=== PATIENT | female | born 2005 | race Caucasian/White ===

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

== ENCOUNTER → 2023-04-01 | Outpatient (CLI) | payer BC ==
[~2023-04-01] MED LIST changes: +Bactrim Ds Tab1 EACH PO
[2023-04-01 16:26] LABS: Source, Urine Clean Catch
[2023-04-01 17:54] LABS: Appearance, Urine Cloudy (Clear); Bilirubin, Urine Neg (Neg); Blood, Urine 1+ (Neg); Glucose Qualitative, Urine Neg (Neg); Ketones, Urine Neg (Neg); Leukocyte Esterase, Urine 2+ (Neg); Nitrite, Urine Neg (Neg); Protein, Urine Neg (Neg); Specific Gravity, Urine 1.015 (1.003-1.022); Urobilinogen, Urine NORM (Normal)
[2023-04-01 18:02] LABS: BASOPHILS ABSOLUTE AUTO 0.03 K/mm3 (0.00-0.23); BASOPHILS PERCENT AUTO 1 % (0-2); EOSINOPHILS ABSOLUTE AUTO 0.07 K/mm3 (0.00-0.68); EOSINOPHILS PERCENT AUTO 1 % (0-6); Hematocrit 38.7 % (33.0-51.0); IMMATURE GRAN ABSOLUTE AUTO 0.01 K/mm3 (0.00-0.10); IMMATURE GRAN PERCENT AUTO 0 % (0-1); LYMPHOCYTES ABSOLUTE AUTO 1.06 K/mm3 (0.84-5.20); LYMPHOCYTES PERCENT AUTO 21 % (21-46); MONOCYTES ABSOLUTE AUTO 0.49 K/mm3 (0.16-1.47); MONOCYTES PERCENT AUTO 10 % (4-13); Mean Corpuscular HGB 30.4 pg (26.0-34.0); Mean Corpuscular HGB Conc 33.6 g/dL (31.5-36.5); Mean Corpuscular Volume 90 fL (80-100); Mean Platelet Volume 11.7 fL (9.1-12.4); NEUTROPHILS ABSOLUTE AUTO 3.36 K/mm3 (1.96-9.15); NEUTROPHILS PERCENT AUTO 67 % (41-73); Platelet Count 241 K/mm3 (150-400); RDW Coefficient Variation 11.9 % (11.7-14.2); RDW Standard Deviation 39.5 fL (35.1-46.3); Red Blood Cell Count 4.28 M/mm3 (3.80-5.20); White Blood Cell Count 5.02 K/mm3 (4.00-11.30)
[2023-04-01 18:08] LABS: Color, Urine Yellow (P-Yellow)
[2023-04-01 18:11] LABS: Amorphous Light (0-Heavy)
[2023-04-01 18:13] LABS: Bacteria Many /hpf; Squamous Epithelial Cells Few /hpf (Few)
[2023-04-02 08:12] LABS: HIV AB/P24 AG SCREEN Non Reactive (Non Reactive)
[2023-04-02 09:12] LABS: HBSAG SCREEN Negative (Negative); HCV ANTIBODY Non Reactive (Non Reactive)
== END | disposition home or self-care (01) ==
LOC: LAB SHORT 13:51 → LAB 13:51
PROVIDERS: Registered Nurse Community Health
DX: Z34.91 Encounter for supervision of normal pregnancy, unspecified, first trimester (principal)
CPT/HCPCS: 80055; 81001; 84443; 86803; 87077; 87086; 87186; 87389

== ENCOUNTER → 2023-04-09 | Outpatient (CLI) | payer BC ==
[2023-04-11 01:11] LABS: CHLAMYDIA TRACHOMATIS, NAA Negative (Negative)
== END ==
LOC: LAB 13:14 → LAB SHORT 13:14
PROVIDERS: Registered Nurse Community Health
DX: Z34.01 Encounter for supervision of normal first pregnancy, first trimester (principal)
CPT/HCPCS: 87491; 87591

== ENCOUNTER → 2023-08-13 | Outpatient (CLI) | payer BC, OTHER ==
[2023-08-13 13:26] LABS: Hematocrit 32.4 % (33.0-51.0); Hemoglobin 11.3 g/dL (11.5-16.0)
== END | disposition home or self-care (01) ==
LOC: LAB 11:32 → LAB SHORT 11:32
PROVIDERS: Registered Nurse Community Health
DX: Z34.02 Encounter for supervision of normal first pregnancy, second trimester (principal)
CPT/HCPCS: 82950; 85014; 85018

== ENCOUNTER 2025-08-03 16:53 | Emergency (ER) | payer OTHER ==
[~2025-08-03] VITALS: Ht 160 cm; Wt 49.0 kg
[~2025-08-03 16:53] MED LIST changes: +ERYT.5TO BOTHEYES; +Ferrousul325 MG PO; +IBUP800 PO; +OCUFLOX510 BOTHEYES; +PRENATAL TABLE1 EAC2
[2025-08-03 17:19] VITALS: BP 126/91
[2025-08-03] MEDS ORDERED: Dexamethasone Sod Phos 10 MG/ML 1ML VIAL PO ONE (17:20)
[2025-08-03] MEDS ORDERED: Ketorolac Tromethamine 30mg Vial IM ONE (17:20)
[2025-08-03] MEDS ORDERED: CYCL10 PO (18:08)
[2025-08-03] MEDS ORDERED: IBUP800 PO (18:08)
== END 2025-08-03 18:15 | disposition home or self-care (01) ==
LOC: ER 16:53
DX: S39.012A Strain of muscle, fascia and tendon of lower back, initial encounter (principal); Z53.29 Procedure and treatment not carried out because of patient's decision for other reasons; X50.1XXA Overexertion from prolonged static or awkward postures, initial encounter; Z79.899 Other long term (current) drug therapy
CPT/HCPCS: 72100; 96372; 99283-25; J1100; J1885